=== PATIENT | male | born 1975 | race Caucasian/White ===

== ENCOUNTER 2018-03-12 20:34 | Emergency (ER) | payer MEDICAID ==
[2018-03-12 21:25] LABS: BASOPHILS % (AUTO) 0.4 % (0.0-5.0); EOSINOPHILS % (AUTO) 1.5 % (0.0-8.0); HEMATOCRIT 39.8 % (42-54); INR 0.96 (0.85-1.15); LYMPHOCYTES % (AUTO) 26.1 % (21.0-51.0); MEAN CORPUSCULAR HEMOGLOBIN 31.9 pg (27.0-33.0); MEAN CORPUSCULAR HGB CONC 34.7 g/dL (32.0-36.0); MEAN CORPUSCULAR VOLUME 92.1 fL (79-99); MONOCYTES % (AUTO) 9.1 % (3.0-13.0); NEUTROPHILS % (AUTO) 62.9 % (40.0-77.0); PARTIAL THROMBOPLASTIN TIME 25.4 SEC (26.3-35.5); PLATELET COUNT (AUTO) 240 K/uL (130-400); PROTHROMBIN TIME 10.1 SEC (9.6-11.6); RED BLOOD CELL COUNT(AUTO) 4.33 MIL/uL (4.50-6.20); RED CELL DISTRIBUTION WIDTH 13.5 % (11.0-15.5); WHITE BLOOD COUNT (AUTO) 7.7 K/uL (4.8-10.8)
[2018-03-12] MEDS ORDERED: HYDROCODONE/ACETAMINOPHEN 5/325 MG TAB ONE (21:28)
[2018-03-12 21:46] LABS: CREATININE 1.3 mg/dL (0.5-1.5); POTASSIUM 3.8 mmol/L (3.5-5.1)
[2018-03-12 22:00] LABS: ALBUMIN 3.7 g/dL (3.5-5.0); BILIRUBIN,TOTAL 0.2 mg/dL (0.2-1.0)
[2018-03-12 22:42] LABS: FIBRINOGEN 257 mg/dL (180-350)
[2018-03-13 03:10] LABS: BASOPHILS % (AUTO) 0.5 % (0.0-5.0); EOSINOPHILS % (AUTO) 3.1 % (0.0-8.0); HEMATOCRIT 38.6 % (42-54); LYMPHOCYTES % (AUTO) 38.8 % (21.0-51.0); MEAN CORPUSCULAR HEMOGLOBIN 31.1 pg (27.0-33.0); MEAN CORPUSCULAR HGB CONC 33.8 g/dL (32.0-36.0); MEAN CORPUSCULAR VOLUME 91.9 fL (79-99); MONOCYTES % (AUTO) 8.4 % (3.0-13.0); NEUTROPHILS % (AUTO) 49.2 % (40.0-77.0); NUCLEATED RED BLOOD CELLS 0.1 % (0.0-0.19); PLATELET COUNT (AUTO) 211 K/uL (130-400); RED CELL DISTRIBUTION WIDTH 13.7 % (11.0-15.5); WHITE BLOOD COUNT (AUTO) 6.5 K/uL (4.8-10.8)
[2018-03-13 03:14] LABS: CREATININE 1.2 mg/dL (0.5-1.5); POTASSIUM 3.7 mmol/L (3.5-5.1)
[2018-03-13 03:36] LABS: INR 0.97 (0.85-1.15); PARTIAL THROMBOPLASTIN TIME 25.8 SEC (26.3-35.5); PROTHROMBIN TIME 10.2 SEC (9.6-11.6)
== END 2018-03-13 04:37 | disposition home or self-care (01) ==
LOC: EDH 20:34
DX: T63.091A Toxic effect of venom of other snake, accidental (unintentional), initial encounter (principal); Y92.488 Other paved roadways as the place of occurrence of the external cause
CPT/HCPCS: 36415; 80048; 80053; 82550; 84484; 85025; 85370; 85384; 85610; 85730

== ENCOUNTER 2018-05-11 07:52 | Emergency (ER) | payer MEDICAID ==
[2018-05-11 08:23] LABS: BASOPHILS % (AUTO) 0.4 % (0.0-5.0); EOSINOPHILS % (AUTO) 2.9 % (0.0-8.0); HEMATOCRIT 44.4 % (42-54); LYMPHOCYTES % (AUTO) 15.3 % (21.0-51.0); MEAN CORPUSCULAR HEMOGLOBIN 31.9 pg (27.0-33.0); MEAN CORPUSCULAR HGB CONC 34.6 g/dL (32.0-36.0); MEAN CORPUSCULAR VOLUME 92.2 fL (79-99); MONOCYTES % (AUTO) 5.8 % (3.0-13.0); NEUTROPHILS % (AUTO) 75.6 % (40.0-77.0); PLATELET COUNT (AUTO) 291 K/uL (130-400); RED BLOOD CELL COUNT(AUTO) 4.82 MIL/uL (4.50-6.20); RED CELL DISTRIBUTION WIDTH 13.8 % (11.0-15.5); WHITE BLOOD COUNT (AUTO) 8.5 K/uL (4.8-10.8)
[2018-05-11 08:35] LABS: CREATININE 1.2 mg/dL (0.5-1.5); POTASSIUM 4.4 mmol/L (3.5-5.1)
[2018-05-11 08:37] LABS: APPEARANCE,URINE Clear (CLEAR); BILIRUBIN,URINE Negative (NEGATIVE); COLOR,URINE Yellow (YELLOW); GLUCOSE, URINE (UA) Negative (NEGATIVE); KETONES,URINE Negative (NEGATIVE); LEUKOCYTE ESTERASE ,URINE Negative (NEGATIVE); NITRATE,URINE Negative (NEGATIVE); OCCULT BLOOD,URINE Negative (NEGATIVE); PH,URINE 8.5 (5.0-8.0); PROTEIN,URINE Negative (NEGATIVE); UROBILINOGEN,URINE 0.2 mg/dL (0.2-1.0)
[2018-05-11 08:43] LABS: ALBUMIN 3.8 g/dL (3.5-5.0); BILIRUBIN,TOTAL 0.2 mg/dL (0.2-1.0); TOTAL PROTEIN, SERUM 7.8 g/dL (6.0-8.3)
[2018-05-11] MEDS ORDERED: SODIUM CHLORIDE 0.9% 1000ML 1,000 ML IV ONE (08:50)
[2018-05-11] MEDS ORDERED: ONDANSETRON HCL 4 MG/2 ML VIAL ONE (08:50)
[2018-05-11] MEDS ORDERED: MORPHINE SULFATE 4 MG/1ML SYG ONE (08:50)
== END 2018-05-11 10:33 | disposition home or self-care (01) ==
LOC: EDH 07:52
DX: R19.7 Diarrhea, unspecified (principal); R10.31 Right lower quadrant pain; R11.2 Nausea with vomiting, unspecified; Z90.49 Acquired absence of other specified parts of digestive tract
CPT/HCPCS: 36415; 74177; 80053; 81003; 83690; 85025; 96361; 96374; 96375; 99284; J2270; J2405; J7030

== ENCOUNTER 2019-01-17 07:49 | Inpatient (IN) | payer MEDICAID, OTHER ==
[~2019-01-17] VITALS: Ht 182.9 cm; Wt 94.8 kg
[2019-01-17 08:24] LABS: BASOPHILS % (AUTO) 1.3 % (0.0-5.0); EOSINOPHILS % (AUTO) 1.5 % (0.0-8.0); HEMATOCRIT 45.2 % (42-54); LYMPHOCYTES % (AUTO) 24.5 % (21.0-51.0); MEAN CORPUSCULAR HEMOGLOBIN 31.6 pg (27.0-33.0); MEAN CORPUSCULAR HGB CONC 34.5 g/dL (32.0-36.0); MEAN CORPUSCULAR VOLUME 91.6 fL (79-99); MONOCYTES % (AUTO) 6.7 % (3.0-13.0); PLATELET COUNT (AUTO) 263 K/uL (130-400); RED BLOOD CELL COUNT(AUTO) 4.94 MIL/uL (4.50-6.20); RED CELL DISTRIBUTION WIDTH 13.7 % (11.0-15.5); WHITE BLOOD COUNT (AUTO) 9.2 K/uL (4.8-10.8)
[2019-01-17 08:33] LABS: POTASSIUM 3.7 mmol/L (3.5-5.1)
[2019-01-17 08:37] LABS: INR 0.94 (0.85-1.15); PROTHROMBIN TIME 9.9 SEC (9.6-11.6)
[2019-01-17 08:39] LABS: ALBUMIN 3.9 g/dL (3.5-5.0); BILIRUBIN,TOTAL 0.6 mg/dL (0.2-1.0); TOTAL PROTEIN, SERUM 7.4 g/dL (6.0-8.3)
[2019-01-17 09:22] LABS: APPEARANCE,URINE Clear (CLEAR); BILIRUBIN,URINE Negative (NEGATIVE); COLOR,URINE Yellow (YELLOW); GLUCOSE, URINE (UA) Negative (NEGATIVE); KETONES,URINE Negative (NEGATIVE); LEUKOCYTE ESTERASE ,URINE Trace (NEGATIVE); NITRATE,URINE Negative (NEGATIVE); OCCULT BLOOD,URINE Negative (NEGATIVE); PH,URINE 5.5 (5.0-8.0); PROTEIN,URINE Negative (NEGATIVE); UROBILINOGEN,URINE 0.2 mg/dL (0.2-1.0)
[2019-01-17 09:30] LABS: BACTERIA,URINE Rare /HPF (None Seen); SQUAMOUS EPITHELIAL CELL,UR Rare /HPF (0-2); WBC,URINE 0-1 /HPF (0-1)
[2019-01-17] MEDS ORDERED: SODIUM CHLORIDE 0.9% 1000ML 1,000 ML IV ONE ×2 (09:39→16:12)
[2019-01-17] MEDS: DEXTROSE 5 % AND 0.9 % NACL 1,000 ML IV SCH ×2 (12:45→20:47)
[2019-01-17] MEDS ORDERED: POTASSIUM CHLORIDE 20 MEQ ERTAB PO PRN (12:45)
[2019-01-17] MEDS ORDERED: POTASSIUM CHLORIDE 20MEQ/100ML 100 ML IV PRN (12:45)
[2019-01-17] MEDS ORDERED: ONDANSETRON HCL 4 MG/2 ML VIAL IV PRN (12:45)
[2019-01-17] MEDS ORDERED: LIDOCAINE HCL-MPF 1% 2ML VIAL IV PRN (12:45)
[2019-01-17] MEDS ORDERED: ACETAMINOPHEN 325 MG TAB PO PRN (12:45)
[2019-01-17] MEDS: METRONIDAZOLE 500MG/100ML BAG 100 ML IV SCH ×2 (12:45→20:46)
[2019-01-17] MEDS ORDERED: ACETAMINOPHEN-CODEINE 300/30MG TAB PO PRN (12:45)
[2019-01-17] MEDS ORDERED: POTASSIUM CHLORIDE 10% ELIXIR 20 MEQ/15 ML UDCUP PO PRN (12:45)
[2019-01-17] MEDS: CEFTRIAXONE SODIUM 1 GM IV SCH (12:45)
[2019-01-17] MEDS ORDERED: ENOXAPARIN SODIUM 30 MG/0.3 ML SQ ONE (13:37)
[2019-01-17] MEDS ORDERED: ONDANSETRON HCL 4 MG/2 ML VIAL ONE (13:37)
[2019-01-17] MEDS ORDERED: MORPHINE SULFATE 2 MG/ML 1ML SYG ONE (13:38)
[2019-01-17] MEDS ORDERED: METRONIDAZOLE 500MG/100ML BAG 100 ML ONE (13:38)
[2019-01-17] MEDS ORDERED: ACETAMINOPHEN-CODEINE 300/30MG TAB ONE (14:25)
[2019-01-17] MEDS ORDERED: CEFTRIAXONE SODIUM 1 GM ONE (14:40)
[2019-01-17] MEDS ORDERED: SODIUM CHLORIDE 0.9% 50 ML IV ONE (14:41)
[2019-01-17 17:30] VITALS: BP 126/77
[2019-01-17] MEDS: MORPHINE SULFATE 2 MG/ML 1ML SYG IV PRN (18:17)
[2019-01-17 19:59] VITALS: BP 136/91
[2019-01-17] MEDS ORDERED: FLU VACC QS2019-20 36MOS UP/PF 60 MCG/0.5 ML ML IM SCH (20:00)
[2019-01-17] MEDS: FAMOTIDINE/PF 20 MG/2 ML VIAL IV SCH (20:47)
--- NOTE | 2019-01-17 20:47 | NUR ---
FLU VACCINE FLU VACCINE WAS ADMINISTERED AT THIS TIME TO THE RIGHT DELTOID. LOT # [id number] EXPIRATION DATE: OCTOBER 29, 2019. PT TOLERATED WELL, VACCINE INFORMATION STATEMENT SHEET GIVEN TO PT. WILL CONTINUE TO OBSERVE PT FOR S/S OF REACTION.
[2019-01-18] VITALS (7 sets, daily range): BP systolic 114–143; BP diastolic 67–83
[2019-01-18] MEDS: DEXTROSE 5 % AND 0.9 % NACL 1,000 ML IV SCH ×4 (04:03→18:07)
[2019-01-18] MEDS: METRONIDAZOLE 500MG/100ML BAG 100 ML IV SCH ×3 (04:06→21:48)
[2019-01-18 04:09] LABS: RED BLOOD CELL COUNT(AUTO) 4.36 MIL/uL (4.50-6.20); WHITE BLOOD COUNT (AUTO) 6.3 K/uL (4.8-10.8)
[2019-01-18 04:10] LABS: HEMATOCRIT 40.5 % (42-54); MEAN CORPUSCULAR HGB CONC 34.4 g/dL (32.0-36.0); MEAN CORPUSCULAR VOLUME 92.8 fL (79-99); PLATELET COUNT (AUTO) 219 K/uL (130-400); RED CELL DISTRIBUTION WIDTH 13.5 % (11.0-15.5)
[2019-01-18 04:35] LABS: POTASSIUM 3.7 mmol/L (3.5-5.1)
[2019-01-18] MEDS: MORPHINE SULFATE 2 MG/ML 1ML SYG IV PRN ×3 (06:55→21:46)
[2019-01-18 08:03] LABS: AMPHET/METH SCREEN,URINE NEGATIVE (NEGATIVE); BARBITURATE SCREEN, URINE NEGATIVE (NEGATIVE); BENZODIAZEPINES SCREEN,URINE NEGATIVE (NEGATIVE); CANNABINOID SCREEN,URINE POSITIVE (NEGATIVE); COCAINE SCREEN,URINE NEGATIVE (NEGATIVE); OPIATE SCREEN,URINE NEGATIVE (NEGATIVE); PHENCYCLIDINE SCREEN,URINE NEGATIVE (NEGATIVE)
[2019-01-18] MEDS: FAMOTIDINE/PF 20 MG/2 ML VIAL IV SCH ×2 (09:50→21:48)
[2019-01-18] MEDS: ENOXAPARIN SODIUM 30 MG/0.3 ML SQ SCH (09:51)
[2019-01-18] MEDS ORDERED: KETOROLAC TROMETHAMINE 30MG/ML IM PRN (10:00)
[2019-01-18] MEDS: ONDANSETRON HCL 4 MG/2 ML VIAL IV PRN ×2 (11:05→21:45)
[2019-01-18] MEDS: CEFTRIAXONE SODIUM 1 GM IV SCH (13:28)
--- NOTE | 2019-01-18 13:30 | NUR ---
Talked to ultrasound department about what time they will be doing the abd. US and I was told it will be about an hr more
--- NOTE | 2019-01-18 15:30 | NUR ---
INITIAL MET W PATIENT AAOX3, INDP , NO DME, DRIVES, CURRENTLY UNEMPLOYED AND UNINSURED. LIVE WITH MOM AND KIDS, GOES TO DR. WHEELER AT [facility] WHEN HE CAN AFFORD IT. DCP IS HOME , WILL GIVE [facility] HOME Addendum: 01/18/19 at 2040 by DELMER BILL RN CM Amended: Links added.
--- NOTE | 2019-01-18 16:00 | NUR ---
US Tech called that she wont be able to get to the ultrasound until about 2 more hrs because she will be busy in [employer]
[2019-01-18] MEDS: KETOROLAC TROMETHAMINE 30MG/ML IV PRN (21:58)
[2019-01-19 04:00] VITALS: BP 130/80
[2019-01-19] MEDS: METRONIDAZOLE 500MG/100ML BAG 100 ML IV SCH ×3 (04:54→21:23)
[2019-01-19] MEDS: DEXTROSE 5 % AND 0.9 % NACL 1,000 ML IV SCH ×3 (04:55→21:24)
[2019-01-19 05:28] LABS: BASOPHILS % (AUTO) 0.5 % (0.0-5.0); EOSINOPHILS % (AUTO) 2.7 % (0.0-8.0); HEMATOCRIT 39.1 % (42-54); MEAN CORPUSCULAR HEMOGLOBIN 32.1 pg (27.0-33.0); MEAN CORPUSCULAR HGB CONC 34.5 g/dL (32.0-36.0); MEAN CORPUSCULAR VOLUME 92.9 fL (79-99); MONOCYTES % (AUTO) 10.9 % (3.0-13.0); NEUTROPHILS % (AUTO) 56.9 % (40.0-77.0); NUCLEATED RED BLOOD CELLS 0.1 % (0.0-0.19); PLATELET COUNT (AUTO) 207 K/uL (130-400); RED CELL DISTRIBUTION WIDTH 13.4 % (11.0-15.5); WHITE BLOOD COUNT (AUTO) 5.5 K/uL (4.8-10.8)
[2019-01-19 05:49] LABS: ALBUMIN 2.9 g/dL (3.5-5.0); BILIRUBIN,TOTAL 0.4 mg/dL (0.2-1.0); POTASSIUM 3.7 mmol/L (3.5-5.1)
[2019-01-19] MEDS: KETOROLAC TROMETHAMINE 30MG/ML IV PRN ×3 (06:30→22:37)
[2019-01-19 08:00] VITALS: BP 116/80
[2019-01-19] MEDS: FAMOTIDINE/PF 20 MG/2 ML VIAL IV SCH ×2 (09:55→21:23)
[2019-01-19] MEDS: ENOXAPARIN SODIUM 30 MG/0.3 ML SQ SCH (09:56)
[2019-01-19] MEDS: FLUOXETINE HCL 20 MG CAPSULE PO SCH (09:57)
[2019-01-19 12:01] VITALS: BP 138/68
[2019-01-19] MEDS: ONDANSETRON HCL 4 MG/2 ML VIAL IV PRN (12:21)
[2019-01-19] MEDS: CEFTRIAXONE SODIUM 1 GM IV SCH (12:49)
[2019-01-19 16:37] VITALS: BP 112/64
[2019-01-19 20:00] VITALS: BP 113/70
[2019-01-19] MEDS: HYDROXYZINE HCL 25 MG TABLET PO PRN (21:23)
[2019-01-19 23:48] VITALS: BP 112/63
[2019-01-20] MEDS: METRONIDAZOLE 500MG/100ML BAG 100 ML IV SCH ×3 (03:45→20:01)
[2019-01-20 04:00] VITALS: BP 113/68
[2019-01-20 06:44] LABS: BASOPHILS % (AUTO) 0.2 % (0.0-5.0); EOSINOPHILS % (AUTO) 3.6 % (0.0-8.0); HEMATOCRIT 38.2 % (42-54); LYMPHOCYTES % (AUTO) 33.5 % (21.0-51.0); MEAN CORPUSCULAR HEMOGLOBIN 31.9 pg (27.0-33.0); MEAN CORPUSCULAR HGB CONC 34.4 g/dL (32.0-36.0); MEAN CORPUSCULAR VOLUME 92.6 fL (79-99); MONOCYTES % (AUTO) 11.7 % (3.0-13.0); PLATELET COUNT (AUTO) 229 K/uL (130-400); RED BLOOD CELL COUNT(AUTO) 4.13 MIL/uL (4.50-6.20); RED CELL DISTRIBUTION WIDTH 13.7 % (11.0-15.5); WHITE BLOOD COUNT (AUTO) 5.9 K/uL (4.8-10.8)
[2019-01-20 07:05] LABS: ALBUMIN 2.9 g/dL (3.5-5.0); BILIRUBIN,TOTAL 0.2 mg/dL (0.2-1.0); CREATININE 1.1 mg/dL (0.5-1.5); POTASSIUM 3.9 mmol/L (3.5-5.1); TOTAL PROTEIN, SERUM 5.9 g/dL (6.0-8.3)
[2019-01-20 07:54] VITALS: BP 109/82
[2019-01-20] MEDS: FLUOXETINE HCL 20 MG CAPSULE PO SCH (08:22)
[2019-01-20] MEDS: FAMOTIDINE/PF 20 MG/2 ML VIAL IV SCH ×2 (08:22→20:01)
[2019-01-20] MEDS: ENOXAPARIN SODIUM 30 MG/0.3 ML SQ SCH (08:23)
[2019-01-20 11:30] VITALS: BP 129/73
[2019-01-20] MEDS: CEFTRIAXONE SODIUM 1 GM IV SCH (13:03)
[2019-01-20] MEDS: ONDANSETRON HCL 4 MG/2 ML VIAL IV PRN (13:20)
[2019-01-20 15:52] VITALS: BP 121/79
[2019-01-20 19:50] VITALS: BP 138/73
--- NOTE | 2019-01-20 20:00 | NUR ---
MEDS SHIFT ASSESSMENT DONE, PLEASE REFER TO CHART. DUE MEDS ADMINISTERED, TOLERATED WELL. KEPT RESTED AND COMFORTABLE. CALL LIGHT WITHIN REACH. WILL MONITOR PT. Addendum: 01/21/19 at 0129 by VALERIA GREGG RN RN Amended: Links added.
[2019-01-20] MEDS: HYDROXYZINE HCL 25 MG TABLET PO PRN (20:10)
[2019-01-20] MEDS: MORPHINE SULFATE 2 MG/ML 1ML SYG IV PRN (20:11)
--- NOTE | 2019-01-20 22:00 | NUR ---
ROUNDS PT IS TILL AWAKE, PT CLAIMS THAT THE SLEEPING PILL IS NOT WORKING. SALINE LOCKED PT. ENCOURAGED TO REST AND RELAXED. WILL MONITOR PT.
[2019-01-20 23:44] VITALS: BP 115/73
--- NOTE | 2019-01-21 02:00 | NUR ---
ROUNDS PT RESTING WELL, FAIRLY ASLEEP. NO DISTRESS NOTED. KEPT UNDISTURBED FOR NOW. CALL LIGHT WITHIN REACH. WILL MONITOR PT.
[2019-01-21 04:00] VITALS: BP 106/64
[2019-01-21] MEDS: METRONIDAZOLE 500MG/100ML BAG 100 ML IV SCH ×3 (04:21→20:06)
[2019-01-21 06:21] LABS: BASOPHILS % (AUTO) 0.4 % (0.0-5.0); EOSINOPHILS % (AUTO) 3.9 % (0.0-8.0); HEMATOCRIT 37.9 % (42-54); LYMPHOCYTES % (AUTO) 34.2 % (21.0-51.0); MEAN CORPUSCULAR HEMOGLOBIN 32.1 pg (27.0-33.0); MEAN CORPUSCULAR HGB CONC 34.7 g/dL (32.0-36.0); MEAN CORPUSCULAR VOLUME 92.3 fL (79-99); MONOCYTES % (AUTO) 11.2 % (3.0-13.0); NEUTROPHILS % (AUTO) 50.3 % (40.0-77.0); NUCLEATED RED BLOOD CELLS 0.1 % (0.0-0.19); PLATELET COUNT (AUTO) 214 K/uL (130-400); RED BLOOD CELL COUNT(AUTO) 4.11 MIL/uL (4.50-6.20); RED CELL DISTRIBUTION WIDTH 13.6 % (11.0-15.5); WHITE BLOOD COUNT (AUTO) 5.8 K/uL (4.8-10.8)
[2019-01-21 06:43] LABS: BILIRUBIN,TOTAL 0.2 mg/dL (0.2-1.0); CREATININE 1.1 mg/dL (0.5-1.5); POTASSIUM 3.8 mmol/L (3.5-5.1)
--- NOTE | 2019-01-21 07:10 | NUR ---
REPORT REPORT GIVEN TO INCOMING NURSE, POOJA SMITH. NURSE;S ROUNDS DONE. FOR MORE CARE.
[2019-01-21 08:08] VITALS: BP 133/84
[2019-01-21] MEDS: FLUOXETINE HCL 20 MG CAPSULE PO SCH (08:54)
[2019-01-21] MEDS: FAMOTIDINE/PF 20 MG/2 ML VIAL IV SCH ×2 (08:54→20:06)
[2019-01-21] MEDS: ENOXAPARIN SODIUM 30 MG/0.3 ML SQ SCH (08:55)
[2019-01-21] MEDS: ONDANSETRON HCL 4 MG/2 ML VIAL IV PRN ×3 (09:02→20:13)
[2019-01-21 11:49] VITALS: BP 130/77
[2019-01-21] MEDS: CEFTRIAXONE SODIUM 1 GM IV SCH (13:26)
[2019-01-21 16:00] VITALS: BP 116/76
[2019-01-21 19:30] VITALS: BP 121/76
[2019-01-21] MEDS: HYDROXYZINE HCL 25 MG TABLET PO PRN (20:06)
--- NOTE | 2019-01-21 20:06 | NUR ---
MEDS SHIFT ASSESSMENT DONE, PLEASE REFER TO CHART. DR GALLO IN TO SEE PT. NEW ORDERS GIVEN, PLEASE REFER TO CHART. PT COMPLAINTS OF NAUSEA. DUE MEDS ADMINISTERED, ZOFRAN IV GIVEN FOR NAUSEA. PT TOLERATED MEDS WELL. KEPT RESTED AND COMFORTABLE IN BED. WILL RE-ASSESS PT. Addendum: 01/22/19 at 0324 by VALERIA GREGG RN RN Amended: Links added.
[2019-01-21] MEDS ORDERED: VENLAFAXINE HCL XR 37.5 MG CAP PO SCH (21:00)
--- NOTE | 2019-01-21 22:47 | NUR ---
ROUNDS PT RESTING WELL. NO COMPLAINTS VERBALIZED. NO DISTRESS NOTED. KEPT RESTED AND COMFORTABLE. WILL MONITOR PT. CALL LIGHT WITHIN REACH.
[2019-01-21 23:00] VITALS: BP 119/80
--- NOTE | 2019-01-22 02:00 | NUR ---
ROUNDS PT RESTING WELL. NO DISTRESS NOTED. KEPT UNDISTURBED FOR NOW. WILL MONITOR PT.
[2019-01-22 03:00] VITALS: BP 123/67
[2019-01-22] MEDS: METRONIDAZOLE 500MG/100ML BAG 100 ML IV SCH ×2 (04:19→13:03)
[2019-01-22] MEDS: ONDANSETRON HCL 4 MG/2 ML VIAL IV PRN ×2 (05:17→13:06)
--- NOTE | 2019-01-22 05:17 | NUR ---
PAIN PT COMPLAINTS OF ABDOMINAL PAINS AND NAUSEA. MEDICATED WITH MORPHINE AND ZOFRAN IV. KEPT COMFORTABLE IN BED. CALL LIGHT WITHIN REACH. WILL RE-ASSESS PT.
[2019-01-22] MEDS: MORPHINE SULFATE 2 MG/ML 1ML SYG IV PRN (05:18)
[2019-01-22 08:00] VITALS: BP 127/75
[2019-01-22] MEDS: ENOXAPARIN SODIUM 30 MG/0.3 ML SQ SCH (09:00)
[2019-01-22] MEDS: FLUOXETINE HCL 20 MG CAPSULE PO SCH (09:09)
[2019-01-22] MEDS: FAMOTIDINE/PF 20 MG/2 ML VIAL IV SCH (09:09)
[2019-01-22 12:00] VITALS: BP 120/77
[2019-01-22] MEDS: CEFTRIAXONE SODIUM 1 GM IV SCH (13:03)
[2019-01-22 15:59] VITALS: BP 111/68
[2019-01-22] MEDS ORDERED: FLUO-126 PO (16:56)
[2019-01-22] MEDS ORDERED: VENL37.570 PO (16:56)
[2019-01-22] MEDS ORDERED: HYDR-3421 PO (16:56)
--- NOTE | 2019-01-22 18:45 | NUR ---
DISCHARGE PATIENT GIVEN DISCHARGE INSTRUCTIONS VIA TEACH BACK. 20G PIV TO LEFT FOREARM DISCONTINUED, TIP INTACT. NO RX GIVEN. PATIENT TO FOLLOW UP DR. GALLO OR [facility] IF NEEDED. FOLLOW UP WITH DR. [place] IN 3 TO 5 DAYS. PATIENT STABLE AT THIS TIME. PATIENT WHEELED DOWNSTAIRS TO [facility] BY [facility] LOUIE.
== END 2019-01-22 18:30 | disposition home or self-care (01) | DRG 249 ==
LOC: EDH 07:49 → EDHIP 07:50 → 4CH 17:22
PROVIDERS: ADMIT Family Medicine; ATTEND Family Medicine
DX: A08.4 Viral intestinal infection, unspecified (principal); E86.0 Dehydration; N39.0 Urinary tract infection, site not specified; F41.1 Generalized anxiety disorder; K21.9 Gastro-esophageal reflux disease without esophagitis; Z87.891 Personal history of nicotine dependence; Z23 Encounter for immunization
CPT/HCPCS: 36415; 74176; 76700; 80048; 80053; 80305; 81001; 82150; 82270; 82550; 83630; 83690; 84484; 85025; 85027; 85610; 85730; 87046; 87177; 87324; 87338; 93005; C9113; G0008; G0378; J0696; J1650; J1885; J2405; J3490; J7030; J7042; Q2035

== ENCOUNTER 2019-01-28 08:58 | Emergency (ER) | payer MEDICAID ==
[~2019-01-28 08:58] MED LIST: FLUO-126 PO; HYDR-3421 PO; VENL37.570 PO
== END 2019-01-28 10:23 | disposition home or self-care (01) ==
LOC: EDH 08:58
DX: S80.01XA Contusion of right knee, initial encounter (principal); K21.9 Gastro-esophageal reflux disease without esophagitis; Z90.49 Acquired absence of other specified parts of digestive tract; Z72.0 Tobacco use; W22.8XXA Striking against or struck by other objects, initial encounter; Y93.89 Activity, other specified; Y92.009 Unspecified place in unspecified non-institutional (private) residence as the place of occurrence of the external cause; Y99.8 Other external cause status
CPT/HCPCS: 73562

== ENCOUNTER 2021-01-08 11:51 | Emergency (ER) | payer MEDICAID ==
[~2021-01-08] VITALS: Ht 182.9 cm; Wt 102.1 kg
[~2021-01-08 11:51] MED LIST changes: -FLUO-126 PO; +FLUO20CA35 PO
[2021-01-08] MEDS ORDERED: IBUP-2070 PO (14:43)
[2021-01-08] MEDS ORDERED: ACET-3194 PO (14:43)
[2021-01-08] MEDS ORDERED: AZIT250T9 PO (14:43)
[2021-01-08] MEDS ORDERED: PSEU120T62 PO (14:43)
[2021-01-08 15:53] VITALS: BP 122/78
== END 2021-01-08 15:54 | disposition home or self-care (01) ==
LOC: EDH 11:51
DX: U07.1 COVID-19 (principal)
CPT/HCPCS: 71045; 87635; 87804 ×2; 87880; 99284; C9803

== ENCOUNTER 2022-01-04 09:56 | Emergency (ER) | payer MEDICAID ==
[~2022-01-04] VITALS: Ht 188 cm; Wt 104.3 kg
[~2022-01-04 09:56] MED LIST changes: +ACET-3194 PO; +AZIT250T9 PO; -FLUO20CA35 PO; +FLUO20CA36 PO; +IBUP-2070 PO; +PSEU120T62 PO
[2022-01-04 10:16] LABS: BASOPHILS % (AUTO) 0.3 % (0.0-5.0); EOSINOPHILS % (AUTO) 0.9 % (0.0-8.0); HEMATOCRIT 45.2 % (42-54); LYMPHOCYTES % (AUTO) 21.1 % (21.0-51.0); MEAN CORPUSCULAR HEMOGLOBIN 31.7 pg (27.0-33.0); MEAN CORPUSCULAR VOLUME 90.6 fL (79-99); NEUTROPHILS % (AUTO) 71.3 % (40.0-77.0); PLATELET COUNT (AUTO) 243 K/uL (130-400); RED BLOOD CELL COUNT(AUTO) 4.99 MIL/uL (4.50-6.20); RED CELL DISTRIBUTION WIDTH 12.9 % (11.0-15.5); WHITE BLOOD COUNT (AUTO) 10.4 K/uL (4.8-10.8)
[2022-01-04] MEDS ORDERED: LACTATED RINGERS 1000ML 1,000 ML IV ONE (10:30)
[2022-01-04 10:36] LABS: ALBUMIN 3.6 g/dL (3.5-5.0); CREATININE 1.2 mg/dL (0.5-1.5); POTASSIUM 3.7 mmol/L (3.5-5.1); TOTAL PROTEIN, SERUM 7.4 g/dL (6.0-8.3)
[2022-01-04] MEDS ORDERED: ONDANSETRON 4MG INJ ONE (10:56)
[2022-01-04] MEDS ORDERED: MORPHINE 4 MG SYG ONE (10:57)
[2022-01-04] MEDS ORDERED: MORPHINE 4 MG SYG IVP ONE (11:00)
[2022-01-04] MEDS ORDERED: ONDANSETRON 4MG INJ IVP ONE (11:00)
[2022-01-04 11:13] LABS: APPEARANCE,URINE CLEAR (CLEAR); BILIRUBIN,URINE NEGATIVE (NEGATIVE); COLOR,URINE YELLOW (YELLOW); GLUCOSE, URINE (UA) NEGATIVE (NEGATIVE); KETONES,URINE 15 mg/dL (NEGATIVE); LEUKOCYTE ESTERASE ,URINE NEGATIVE (NEGATIVE); NITRATE,URINE NEGATIVE (NEGATIVE); OCCULT BLOOD,URINE NEGATIVE (NEGATIVE); PH,URINE 8.5 (5.0-8.0); PROTEIN,URINE NEGATIVE (NEGATIVE); UROBILINOGEN,URINE 0.2 mg/dL (0.2-1.0)
[2022-01-04 11:23] LABS: BACTERIA,URINE Rare /HPF (None Seen); RBC,URINE 0-1 /HPF (0-1); SQUAMOUS EPITHELIAL CELL,UR Rare /HPF (0-2); WBC,URINE 0-1 /HPF (0-1)
[2022-01-04] MEDS ORDERED: HYDROMORPHONE 1 MG INJ ONE (12:11)
[2022-01-04] MEDS ORDERED: IOHEXOL 350 MG/ML 100ML INFUS..BTL IV ONE (12:29)
[2022-01-04] MEDS ORDERED: HYDROMORPHONE 1 MG INJ IVP ONE (12:30)
[2022-01-04] MEDS ORDERED: ONDA4TAB10 PO (13:45)
[2022-01-04 13:53] VITALS: BP 120/82
[2022-01-05] MEDS ORDERED: CIPR-278 PO (07:17)
[2022-01-05] MEDS ORDERED: DICL35CA3 PO (07:17)
== END 2022-01-04 13:59 | disposition home or self-care (01) ==
LOC: EDH 09:56
DX: K29.00 Acute gastritis without bleeding (principal); K21.9 Gastro-esophageal reflux disease without esophagitis; F17.200 Nicotine dependence, unspecified, uncomplicated; Z79.1 Long term (current) use of non-steroidal anti-inflammatories (NSAID); Z79.899 Other long term (current) drug therapy; Z90.49 Acquired absence of other specified parts of digestive tract
CPT/HCPCS: 99285; 74177; 96374; 96361; 96375; 84484; 80053; 83690; 85025; 81001; 36415; 93005; J7120; J1170; J2405; J2270; Q9967

== ENCOUNTER 2022-01-05 02:35 | Emergency (ER) | payer MEDICAID ==
[~2022-01-05] VITALS: Ht 188 cm; Wt 104.3 kg
[~2022-01-05 02:35] MED LIST changes: +ONDA4TAB10 PO
[2022-01-05] MEDS ORDERED: KETOROLAC 15MG/ML VIAL (15MG/ML) IV ONE (03:00)
[2022-01-05 03:02] LABS: BASOPHILS % (AUTO) 0.2 % (0.0-5.0); EOSINOPHILS % (AUTO) 0.4 % (0.0-8.0); HEMATOCRIT 43.6 % (42-54); LYMPHOCYTES % (AUTO) 16.5 % (21.0-51.0); MEAN CORPUSCULAR HEMOGLOBIN 31.5 pg (27.0-33.0); MEAN CORPUSCULAR HGB CONC 34.6 g/dL (32.0-36.0); MONOCYTES % (AUTO) 6.2 % (3.0-13.0); NEUTROPHILS % (AUTO) 76.3 % (40.0-77.0); PLATELET COUNT (AUTO) 231 K/uL (130-400); RED BLOOD CELL COUNT(AUTO) 4.79 MIL/uL (4.50-6.20); RED CELL DISTRIBUTION WIDTH 12.9 % (11.0-15.5); WHITE BLOOD COUNT (AUTO) 10.9 K/uL (4.8-10.8)
[2022-01-05 03:04] LABS: APPEARANCE,URINE CLEAR (CLEAR); BILIRUBIN,URINE SMALL (NEGATIVE); COLOR,URINE YELLOW (YELLOW); GLUCOSE, URINE (UA) NEGATIVE (NEGATIVE); KETONES,URINE >=80 mg/dL (NEGATIVE); LEUKOCYTE ESTERASE ,URINE NEGATIVE (NEGATIVE); NITRATE,URINE NEGATIVE (NEGATIVE); OCCULT BLOOD,URINE SMALL (NEGATIVE); PROTEIN,URINE NEGATIVE (NEGATIVE)
[2022-01-05 03:16] LABS: CREATININE 1.2 mg/dL (0.5-1.5); POTASSIUM 3.6 mmol/L (3.5-5.1)
[2022-01-05 03:21] LABS: ALBUMIN 3.6 g/dL (3.5-5.0); TOTAL PROTEIN, SERUM 7.3 g/dL (6.0-8.3)
[2022-01-05 03:23] LABS: BACTERIA,URINE Few /HPF (None Seen); SQUAMOUS EPITHELIAL CELL,UR 0-2 /HPF (0-2); WBC,URINE 0-1 /HPF (0-1)
[2022-01-05 05:53] VITALS: BP 112/78
[2022-01-05] MEDS ORDERED: 0.9%NACL 1000ML 1,000 ML IV ONE ×2 (06:15→06:30)
[2022-01-05] MEDS ORDERED: ONDANSETRON 4MG INJ ONE (06:21)
[2022-01-05] MEDS ORDERED: ONDANSETRON 4MG INJ IVP ONE (06:30)
[2022-01-05] MEDS ORDERED: LEVOFLOXACIN 750 MG/D5W 150 ML 150 ML ONE (06:47)
[2022-01-05] MEDS ORDERED: 0.9%NACL 1000ML 500 ML IV ONE (07:00)
[2022-01-05] MEDS ORDERED: CIPR-278 PO (07:17)
[2022-01-05] MEDS ORDERED: DICL35CA3 PO (07:17)
[2022-01-05] MEDS ORDERED: SOLU-MEDROL 125MG VIAL ONE (07:56)
[2022-01-05] MEDS ORDERED: DiphenhydrAMINE HCL 50 MG/ML VIAL ONE (07:56)
[2022-01-05] MEDS ORDERED: SULFAMETHOX-TMP DS 800/160 TAB PO SCH (08:00)
[2022-01-05] MEDS ORDERED: DiphenhydrAMINE HCL 50 MG/ML VIAL IV ONE (08:00)
[2022-01-05] MEDS ORDERED: SOLU-MEDROL 125MG VIAL IM ONE (08:00)
[2022-01-05] MEDS ORDERED: SOLU-MEDROL 125MG VIAL IVP SCH (08:30)
[2022-01-05] MEDS ORDERED: LEVOFLOXACIN 750 MG/D5W 150 ML 150 ML IV SCH (09:00)
== END 2022-01-05 09:42 | disposition home or self-care (01) ==
LOC: EDH 02:35
DX: N41.9 Inflammatory disease of prostate, unspecified (principal); E86.0 Dehydration; K21.9 Gastro-esophageal reflux disease without esophagitis; I10 Essential (primary) hypertension; Z90.49 Acquired absence of other specified parts of digestive tract; Z98.890 Other specified postprocedural states; Z79.899 Other long term (current) drug therapy
CPT/HCPCS: 99285; 96365; 96375; 96366; 80053; 85025; 81001; 36415; 76870; 93005; J1200; J1956; J7030 ×2; J2930; J2405; J1885